=== PATIENT | male | born 1965 | race Caucasian/White ===

== ENCOUNTER 2017-11-19 08:26 | Day surgery (SDC) | payer MEDICARE ==
[~2017-11-19] VITALS: Ht 167.6 cm; Wt 155.2 kg
[~2017-11-19 08:26] MED LIST: ALLO100T30 PO; ASCO500C2 PO; ASPI-496 PO; ASPI325T80 PO; ATOR10TA9 PO; ATOR20TA9 PO; CA C1TAB60 PO; CARV3.122 PO; CHOL10003 PO; CHOL500015 PO; CYAN10005 PO; ENOX30SY4 SQ; FISH1CAP PO; FURO40TA6 PO; GLYB2.5T2 PO; GLYB5TAB3 PO; LINA5TAB PO; LISI-167 PO; MULT-6 PO; POTA20TA14 PO; RANI150T4 PO; WARF10TA PO
[2017-11-19 09:14] VITALS: BP 124/52
[2017-11-19] MEDS ORDERED: SODIUM CHLORIDE 0.9% 1,000 ML IV SCH (09:14)
[2017-11-19] MEDS ORDERED: LIDOCAINE 1%, 10ML ONE (09:44)
[2017-11-19 09:47] LABS: BASOPHILS # (AUTO) 0.04 x10^3/uL (0-0.1); BASOPHILS % (AUTO) 1 % (0-1); EOSINOPHILS # (AUTO) 0.15 x10^3/uL (0-0.4); EOSINOPHILS % (AUTO) 2 % (1-7); LYMPHOCYTES # (AUTO) 1.97 x10^3/uL (1-3.4); LYMPHOCYTES % (AUTO) 24 % (22-44); MD NO; MEAN CORPUSCULAR HGB CONC 33.2 g/dL (33.2-36.2); MEAN CORPUSCULAR VOLUME 87.4 fL (81-97); MEAN PLATELET VOLUME 7.4 fL (7.4-10.4); MONOCYTES # (AUTO) 0.39 x10^3/uL (0.2-0.8); MONOCYTES % (AUTO) 5 % (2-9); NEUTROPHILS # (AUTO) 5.57 x10^3/uL (1.8-6.8); NEUTROPHILS % (AUTO) 69 % (42-75); PLATELET COUNT 146 x10^3/uL (130-400); RED BLOOD COUNT 5.07 x10^6/uL (4.38-5.82); RED CELL DISTRIBUTION WIDTH 16.3 % (9.4-14.8)
[2017-11-19] MEDS ORDERED: NALOXONE 1 MG/ML, 2ML ONE (10:02)
[2017-11-19] MEDS ORDERED: FENTANYL PF 100 MCG/2ML ONE (10:02)
[2017-11-19] MEDS ORDERED: MIDAZOLAM 1 MG/ML, 2ML ONE ×2 (10:02)
[2017-11-19] MEDS ORDERED: FLUMAZENIL 0.1 MG/1 ML, 5ML ONE (10:02)
== END 2017-11-19 12:30 ==
LOC: OUT 08:26
PROVIDERS: ATTEND Internal Medicine Hematology & Oncology
DX: D47.2 Monoclonal gammopathy (principal); E11.22 Type 2 diabetes mellitus with diabetic chronic kidney disease; I12.9 Hypertensive chronic kidney disease with stage 1 through stage 4 chronic kidney disease, or unspecified chronic kidney disease; N18.9 Chronic kidney disease, unspecified; I25.10 Atherosclerotic heart disease of native coronary artery without angina pectoris; E78.5 Hyperlipidemia, unspecified; Z86.14 Personal history of Methicillin resistant Staphylococcus aureus infection; Z98.890 Other specified postprocedural states
CPT/HCPCS: 36415; 38222; 77012; 85025; 85060; 85097; 88237; 88264; 88280; 88305; 88311; 88313; 99156; J2250; J3010; J3490; 88341; 88342; 99157; G0461; J2310

== ENCOUNTER → 2017-11-23 | Outpatient (CLI) | payer MEDICARE | END | disposition home or self-care (01) | LOC: CVU 07:31 | PROVIDERS: ATTEND Family Medicine | DX: I73.9 Peripheral vascular disease, unspecified (principal); G47.30 Sleep apnea, unspecified; E11.9 Type 2 diabetes mellitus without complications; I11.0 Hypertensive heart disease with heart failure; I50.9 Heart failure, unspecified; Z86.718 Personal history of other venous thrombosis and embolism | CPT/HCPCS: 93922 ==

== ENCOUNTER → 2018-01-17 | Outpatient (CLI) | payer MEDICARE | END | disposition home or self-care (01) | LOC: PETCFH 08:19 | PROVIDERS: ATTEND Internal Medicine Hematology & Oncology | DX: J98.11 Atelectasis (principal); K42.9 Umbilical hernia without obstruction or gangrene; D47.2 Monoclonal gammopathy; C90.00 Multiple myeloma not having achieved remission | CPT/HCPCS: 78815; A9552 ==

== ENCOUNTER 2021-01-20 06:50 | Day surgery (SDC) | payer MEDICARE ==
[~2021-01-20] VITALS: Ht 167.6 cm; Wt 145.6 kg
[~2021-01-20 06:50] MED LIST changes: +ATOR20TA37 PO; -ATOR20TA9 PO; +CYAN-27 PO; -CYAN10005 PO
[2021-01-20] MEDS ORDERED: SODIUM CHLORIDE 0.9% 1,000 ML IV SCH (07:30)
[2021-01-20 07:57] VITALS: BP 136/77
[2021-01-20] MEDS ORDERED: ASPI-1026 PO (08:07)
[2021-01-20 08:10] LABS: BASOPHILS % (AUTO) 1 % (0-1); EOSINOPHILS % (AUTO) 1 % (1-7); LYMPHOCYTES % (AUTO) 21 % (22-44); MEAN CORPUSCULAR HEMOGLOBIN 30.7 pg (27.5-34.5); MEAN CORPUSCULAR HGB CONC 33.6 g/dL (33.2-36.2); MEAN PLATELET VOLUME 7.2 fL (7.4-10.4); MONOCYTES % (AUTO) 6 % (2-9); NEUTROPHILS % (AUTO) 72 % (42-75); PLATELET COUNT 143 x10^3/uL (130-400); RED BLOOD COUNT 4.78 x10^6/uL (4.38-5.82); RED CELL DISTRIBUTION WIDTH 15.8 % (9.4-14.8)
[2021-01-20 08:13] LABS: MD NO
[2021-01-20] MEDS ORDERED: LIDOCAINE 1%, 10ML ONE (08:59)
[2021-01-20] MEDS ORDERED: FENTANYL PF 100 MCG/2ML ONE (09:05)
[2021-01-20] MEDS ORDERED: MIDAZOLAM 1 MG/ML, 5ML ONE (09:05)
[2021-01-20] MEDS ORDERED: FLUMAZENIL 0.1 MG/1 ML, 5ML ONE (09:05)
[2021-01-20] MEDS ORDERED: NALOXONE 1 MG/ML, 2ML ONE (09:05)
== END 2021-01-20 10:45 | disposition home or self-care (01) ==
LOC: OUT 06:50
PROVIDERS: ATTEND Internal Medicine Hematology & Oncology
DX: D47.2 Monoclonal gammopathy (principal); I13.0 Hypertensive heart and chronic kidney disease with heart failure and stage 1 through stage 4 chronic kidney disease, or unspecified chronic kidney disease; N18.30 Chronic kidney disease, stage 3 unspecified; I50.9 Heart failure, unspecified; G47.33 Obstructive sleep apnea (adult) (pediatric); E66.01 Morbid (severe) obesity due to excess calories; F17.290 Nicotine dependence, other tobacco product, uncomplicated; Z79.82 Long term (current) use of aspirin; Z79.899 Other long term (current) drug therapy; Z86.718 Personal history of other venous thrombosis and embolism; Z88.8 Allergy status to other drugs, medicaments and biological substances; Z99.81 Dependence on supplemental oxygen; Z98.890 Other specified postprocedural states; Z80.0 Family history of malignant neoplasm of digestive organs; Z83.3 Family history of diabetes mellitus; Z84.1 Family history of disorders of kidney and ureter
CPT/HCPCS: 36415; 38222; 77012; 85025; 85060; 85097; 88237; 88264; 88280; 88305; 88311; 88313; 88341; 88342; 88360; 99156; J2250; J3010; J7030; J2310